=== PATIENT | female | born 1980 | race African-American/Black ===

== ENCOUNTER 2023-03-11 11:57 | Emergency (ER) | payer MEDICAID ==
[~2023-03-11] VITALS: Ht 170.2 cm; Wt 104.0 kg
[2023-03-11 12:03] VITALS: PULSE 108
[2023-03-11 12:05] VITALS: BP 135/83; RESP 20; TEMP 98.6; O2SAT 98
[2023-03-11] MEDS ORDERED: IBUP-2029 MT (14:19)
[2023-03-11] MEDS ORDERED: AMOX1TAB16 MT (14:19)
== END 2023-03-11 14:57 | disposition home or self-care (01) ==
LOC: ER 12:13
DX: K04.7 Periapical abscess without sinus (principal)
CPT/HCPCS: 99283

== ENCOUNTER 2023-11-20 08:54 | Emergency (ER) | payer MEDICAID ==
[~2023-11-20] VITALS: Ht 167.6 cm; Wt 108.0 kg
[~2023-11-20 08:54] MED LIST: AMOX1TAB16 MT; IBUP-2029 MT
[2023-11-20 08:58] VITALS: BP 125/87; PULSE 87; RESP 16; TEMP 98.5; O2SAT 100
== END 2023-11-20 11:47 | disposition home or self-care (01) ==
LOC: ER 09:22
DX: Z32.00 Encounter for pregnancy test, result unknown (principal); F12.90 Cannabis use, unspecified, uncomplicated
CPT/HCPCS: 81025; 99282